=== PATIENT | male | born 1985 | race Caucasian/White ===

== ENCOUNTER 2017-09-29 07:54 | Emergency (ER) | payer BC ==
[2017-09-29] MEDS ORDERED: PROPARACAINE HCL OPTH 15ML BTL OPTH ONE (08:16)
--- NOTE | 2017-09-29 08:27 | Emergency Department Record ---
History of Present Illness - General Chief complaint: Abscess Stated complaint: BOIL BY RIGHT EYE Time Seen by Provider: 09/29/17 08:09 Source: Patient Mode of Arrival: Ambulatory Limitations: No limitations - History of Present Illness Initial comments: The patient is here due to a rash by his R eye for 5 days. He was seen in an urgent care 2 days ago and was started on Clindamycin and Acyclovir. The patient was told to go to the ER if the rash worsens or gets near the eye. Now the rash is slightly spreading so he is here for recheck. The patient is having pain over the rash area but is not having any eye pain, discomfort, photophobia or visual changes. MD complaint: Rash Onset/Timin -: Days(s) Hx Tetanus Toxoid Vaccination: Yes Year of Tetanus Vaccination: 2015 Patient Tetanus UTD (within 5 yrs): Yes Location: Face Severity scale (1-10): 3 Quality: Burning Consistency: Intermittent Improves with: None Treatments Prior to Arrival: Antibiotic, Other - Related Data Home Medications Medication Instructions Recorded Confirmed Last Taken Acyclovir [Acyclovir] 1 tab PO Q8H 09/29/17 09/29/17 09/28/17 Clindamycin HCl [Clindamycin HCl] 2 tab PO TID 09/29/17 09/29/17 09/28/17 Previous Rx's Medication Instructions Recorded Valacyclovir HCl [Valacyclovir] 1,000 mg PO TID #42 tablet 09/29/17 Allergies Allergy/AdvReac Type Severity Reaction Status Date / Time No Known Allergies Allergy none Verified 09/29/17 08:09 Travel Screening - Travel/Exposure Within Last 30 Days Have you traveled within the last 30 days?: No - Travel/Exposure Within Last Year Have you traveled outside the [place] in the last year?: No - Additonal Travel Details Have you been exposed to anyone with a communicable illness?: No - Travel Symptoms Symptom Screening: None Review of Systems Constitutional: Denies: Chills, Fever Eyes: Denies: Eye discharge ENT: Denies: Congestion Past Medical History - SOCIAL HISTORY Smoking Status: Never smoker Alcohol Use: None Drug Use: None - RESPIRATORY Hx Respiratory Disorders: Yes Hx Asthma: Yes (as child) - CARDIOVASCULAR Hx Cardio Disorders: No - NEURO Hx Neuro Disorders: No - GI Hx GI Disorders: No - Hx Genitourinary Disorders: No - ENDOCRINE Hx Endocrine Disorders: No - MUSCULOSKELETAL Hx Musculoskeletal Disorders: No - PSYCH Hx Psych Problems: No - HEMATOLOGY/ONCOLOGY Hx Hematology/Oncology Disorders: No Family Medical History Any Significant Family History?: No Hx Diabetes: Grandparents Physical Exam - General General Appearance: Alert, Oriented x3, Cooperative, No acute distress - Head Head exam: Atraumatic, Normocephalic, Normal inspection Image of Face/Head: 1 - Area of rash. - Eye Eye exam: PERRL, EOMI, Other (there is a 2x2 cm irregularly shaped area of rash just lateral to the R eye. It appears to have a few faint vesicular lesions on an erythematous base.). negative: Normal appearance, Conjunctival injection ( The R eye appears normal with no corneal flourscein uptake.), Periorbital swelling - ENT ENT exam: TM's normal bilaterally Throat exam: Normal inspection. negative: Tonsillar erythema, Tonsillar exudate - Neck Neck exam: Normal inspection, Full ROM. negative: Lymphadenopathy, Tenderness - Extremities Extremities exam: Normal inspection, Full ROM, Normal capillary refill. negative: Tenderness - Neurological Neurological exam: Alert, Normal gait. negative: Abnormal gait, Motor sensory deficit - Skin Skin exam: Rash Course Vital Signs 09/29/17 07:58 Temperature 98.5 F Pulse Rate 82 Respiratory 16 Rate Blood Pressure 131/90 Pulse Ox 98 - Reevaluation(s) Reevaluation #1: I did explain to the patient the need for stopping the Acylclovir and starting the Valacyclovir. He is to continue the Clindamycin and return to the ER for any worsening symptoms, or any eye involvement or pain. 09/29/17 08:56 Disposition Disposition: Discharge Clinical Impression: Skin rash Disposition: Home, Self-Care Condition: (2) Stable Instructions: Shingles (ED) Additional Instructions: Please continue the Clindamycin and stop the Acyclovir. Please start the Valtrex and return to the ER for any worsening symptoms, pain, fever, or any eye involvement. Prescriptions: Valacyclovir HCl [Valacyclovir] 1,000 mg PO TID #42 tablet Forms: Patient Portal Access Time of Disposition: 08:26 Quality - Quality Measures Quality Measures: N/A - Blood Pressure Screening View Details: Yes Does Patient Have Any of the Following: No Blood Pressure Classification: Hypertensive Reading Systolic Measurement: 128 Diastolic Measurement: 90 Screening for High Blood Pressure: < First Hypertensive BP, F/U Documented > [ [id number]] First Hypertensive Follow-up Interventions: Referral to alternative/primary care provider.
== END 2017-09-29 08:37 | disposition home or self-care (01) ==
LOC: ER 07:54
DX: R21 Rash and other nonspecific skin eruption (principal)
CPT/HCPCS: 99282